=== PATIENT | male | born 1985 | race Caucasian/White ===

== ENCOUNTER 2025-07-18 17:11 | Emergency (ER) | payer MEDICAID ==
[~2025-07-18] VITALS: Ht 177.8 cm; Wt 84.0 kg
[2025-07-18 17:15] VITALS: O2SAT 98
[2025-07-18] MEDS: MORPHINE SULFATE 4 MG/ML INJ (FOR IV/IM USE) IV ONE (18:13)
[2025-07-18] MEDS: SODIUM CHLORIDE 0.9% 1,000 ML IV ONE (18:13)
[2025-07-18] MEDS: FAMOTIDINE 20MG/2ML VIAL IV ONE (18:13)
[2025-07-18] MEDS: ONDANSETRON HCL 4MG/2ML INJ IV ONE (18:13)
[2025-07-18 18:26] LABS: BASOPHILS % 0.6 % (0.0-2.0); EOSINOPHILS % 0.3 % (0.0-5.0); HEMATOCRIT. 44.9 % (42.0-52.0); HEMOGLOBIN. 14.6 g/dL (14.0-18.0); LYMPHOCYTES % 14.5 % (20.0-50.0); MEAN PLATELET VOLUME 6.9 fl (7.4-10.4); MONOCYTES % 6.2 % (2.0-8.0); NEUTROPHILS % 78.4 % (40.0-76.0); PLATELET 214 x1000/uL (130-400); RED BLOOD CELL COUNT 5.72 mill/uL (4.7-6.1); RED CELL DISTRIBUTION WIDTH 13.3 % (11.6-14.6)
[2025-07-18 18:36] LABS: INR 1.0
[2025-07-18 18:41] LABS: CREATININE 1.0 mg/dL (0.6-1.3); UREA NITROGEN BLOOD 8 mg/dL (9-23)
[2025-07-18 18:42] LABS: ETHANOL BLOOD 300 mg/dL (<10); PROTEIN TOTAL 6.9 g/dL (6.0-8.3)
[2025-07-18 18:43] LABS: ASPARTATE AMINOTRANSFERASE 77 IU/L (<34); BILIRUBIN DIRECT < 0.1 mg/dL (<=3.0)
[2025-07-18 18:44] LABS: *AMPHETAMINES SCREEN URINE NEGATIVE (NEGATIVE); *BARBITURATES SCREEN URINE NEGATIVE (NEGATIVE); *BENZODIAZEPINES SCREEN URINE NEGATIVE (NEGATIVE); *COCAINE SCREEN URINE NEGATIVE (NEGATIVE); BILIRUBIN TOTAL 0.3 mg/dL (0.1-1.0); CANNABINOID URINE SCREEN NEGATIVE (NEGATIVE); ECSTASY MDMA SCREEN URINE NEGATIVE (NEGATIVE); METHADONE URINE SCREEN NEGATIVE (NEGATIVE); OPIATES URINE SCREEN NEGATIVE (NEGATIVE); PHENCYCLIDINE URINE SCREEN NEGATIVE (NEGATIVE)
[2025-07-18] MEDS: LORAZEPAM 2MG/ML UD SYRINGE IV SCH (21:17)
[2025-07-18] MEDS: OLANZAPINE 10MG TABLET PO NR (23:02)
[2025-07-18 23:47] VITALS: BP 133/76; PULSE 74; RESP 18; TEMP 36.7; O2SAT 99
== END 2025-07-19 00:05 | disposition short-term general hospital (02) ==
LOC: ER 17:11 → CMPBEDREQ 07-19 02:27
DX: R45.851 Suicidal ideations (principal); Z20.822 Contact with and (suspected) exposure to COVID-19; Z79.899 Other long term (current) drug therapy; Z98.890 Other specified postprocedural states
CPT/HCPCS: 80076; 80305; 80048; 80307; 80329; 80320; 83690; 85025; 85610; 36415; 74176; 93005; 96374; 96375; 99285; 87426; J1308; J2060; J2405; J2270; J7030; Z7610; G0480